=== PATIENT | male | born 1950 | race Caucasian/White ===

== ENCOUNTER 2020-10-03 09:03 | Emergency (ER) | payer OTHER ==
--- NOTE | 2020-10-03 09:08 | ERPHSYRPT ---
- History of Present Illness Time Seen by Provider: 10/03/20 09:08 Source: patient, family Physician History: This is a 70-year-old white male who has a history of hypertension on lisinopril and no new changes in his medication woke up this morning and had dizziness. He was still in the room was turning. Soon after the symptoms his gave him a Valium for some unknown reason. He denies chest pain and he denies shortness of breath. Denies abdominal pain. He did have a similar episode a few years back. Patient is new to this area and does not have a local primary care physician. He does not have a men's custom hair piece consultant. He is on low-dose carvedilol (beta-daljit). He states he is never been on any antidizzy medication in the past. Timing/Duration: today Severity: mild Character of Deficits: none Deficits: no difficulties Baseline/Normal Cognition: alert oriented x 3 Current Cognition: alert oriented x 3 Baseline Gait: walks w/o assistance Associated Symptoms: denies symptoms Allergies/Adverse Reactions: No Known Drug Allergies Allergy (Unverified 10/03/20 09:30) Home Medications: Carvedilol 3.125 mg [Coreg 3.125 MG] 3.125 mg PO DAILY 10/03/20 [History] Diclofenac Sodium 75 mg PO DAILY 10/03/20 [History] Doxazosin Mesylate 4 mg PO BID 10/03/20 [History] Levothyroxine Sodium [Euthyrox] 88 mcg PO DAILY 10/03/20 [History] Lisinopril 20 mg [Zestril 20 MG] 20 mg PO DAILY 10/03/20 [History] Ropinirole HCl 1 mg PO DAILY 10/03/20 [History] Travel Risk - International Travel Have you traveled outside of the country in past 3 weeks: No - Coronavirus Screening Are you exhibiting any of the following symptoms?: No Close contact with a COVID-19 positive Pt in past 14-21 Days: No - Review of Systems Constitutional: No Symptoms Eyes: No Symptoms Ears, Nose, & Throat: No Symptoms Respiratory: No Symptoms Cardiac: No Symptoms Abdominal/Gastrointestinal: No Symptoms Genitourinary Symptoms: No Symptoms Musculoskeletal: No Symptoms Skin: No Symptoms Neurological: Dizziness Psychological: No Symptoms Endocrine: No Symptoms Hematologic/Lymphatic: No Symptoms Immunological/Allergic: No Symptoms All Other Systems: Reviewed and Negative - Past Medical History Pertinent Past Medical History: Yes Cardiac History: Hypertension - Past Surgical History Past Surgical History: Yes - Nursing Vital Signs Nursing Vital Signs: Initial Vital Signs Temperature 96.5 F 10/03/20 09:08 Pulse Rate 59 L 10/03/20 09:08 Respiratory Rate 14 10/03/20 09:08 Blood Pressure 159/95 10/03/20 09:08 O2 Sat by Pulse Oximetry 98 10/03/20 09:08 Pain Scale Pain Intensity 0 - Jennifer Coma Scale Best Eye Response (Jennifer): (4) open spontaneously Best Verbal Response (Jennifer): (5) oriented Best Motor Response (Jennifer): (6) obeys commands Jennifer Total: 15 - Physical Exam General Appearance: no apparent distress, alert, anxiety Eye Exam: bilateral eye: normal inspection, PERRL, EOMI Ears, Nose, Throat Exam: normal ENT inspection, TMs normal, pharynx normal, moist mucous membranes Neck Exam: normal inspection, non-tender, supple, full range of motion Respiratory: normal breath sounds, lungs clear, airway intact, No chest tenderness, No respiratory distress Cardiovascular: regular rate/rhythm, normal heart sounds, normal peripheral pulses Gastrointestinal: soft, normal bowel sounds, No tenderness Rectal Exam: not done Back Exam: normal inspection, normal range of motion, No CVA tenderness Extremity Exam: normal inspection, normal range of motion, pelvis stable Mental Status: alert, oriented x 3, 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 No comparison EKG present or available) Ordered Tests: Active Orders 24 hr Category Date Time Status EKG-ER Only STAT Care 10/03/20 09:43 Active IV Insertion STAT Care 10/03/20 09:43 Active HEAD WITHOUT CONTRAST [CT] Stat Exams 10/03/20 10:44 Completed CBC W DIFF Stat Lab 10/03/20 09:55 Completed CMP Stat Lab 10/03/20 09:55 Completed MAGNESIUM Stat Lab 10/03/20 09:55 Completed T4 (Thyroxine) Stat Lab 10/03/20 09:55 Completed TROPONIN Q3H Lab 10/03/20 09:55 Completed TROPONIN Q3H Lab 10/03/20 12:45 Ordered TROPONIN Q3H Lab 10/03/20 15:45 Ordered TROPONIN Q3H Lab 10/03/20 18:45 Ordered TROPONIN Q3H Lab 10/03/20 21:45 Ordered TSH, 3RD Generation Stat Lab 10/03/20 09:55 Completed UA W/RFX UR CULTURE Stat Lab 10/03/20 11:12 Completed Lab/Rad Data: Laboratory Result Diagrams 10/03/20 09:55 10/03/20 09:55 Laboratory Results 10/03/20 10/03/20 10/03/20 Range/Units 11:12 09:55 09:55 WBC (4.0-10.5) K/mm3 RBC (4.1-5.6) M/mm3 Hgb (12.5-18.0) gm/dl Hct (42-50) % MCV (78-100) fl MCH (26-32) pg MCHC (32-36) g/dl RDW (11.5-14.0) % Plt Count (150-450) K/mm3 MPV (7.5-11.0) fl Gran % (36.0-66.0) % Eos # (Auto) (0-0.5) Absolute Lymphs (auto) (1.0-4.6) Absolute Monos (auto) (0.0-1.3) Lymphocytes % (24.0-44.0) % Monocytes % (0.0-12.0) % Eosinophils % (0.00-5.0) % Basophils % (0.0-0.4) % Absolute Granulocytes (1.4-6.9) Basophils # (0-0.4) Sodium (137-145) mmol/L Potassium (3.5-5.1) mmol/L Chloride (98-107) mmol/L Carbon Dioxide (22-30) mmol/L Anion Gap (5-15) MEQ/L BUN (9-20) mg/dL Creatinine (0.66-1.25) mg/dL Estimated GFR ML/MIN Glucose (74-106) mg/dL Calcium (8.4-10.2) mg/dL Magnesium (1.6-2.3) mg/dL Total Bilirubin (0.2-1.3) mg/dL AST (17-59) U/L ALT (0-50) U/L Alkaline Phosphatase (38-126) U/L Troponin I < 0.012 (0.000-0.034) ng/mL Serum Total Protein (6.3-8.2) g/dL Albumin (3.5-5.0) g/dL Thyroxine (T4) 8.43 (5.53-10.96) ug/dL TSH 3rd Generation 3.020 (0.47-4.68) mIU/L Urine Color YELLOW (YELLOW) Urine Appearance SLIGHTLY CLOUDY (CLEAR) Urine pH 7.0 (5-6) Ur Specific Louise 1.019 (1.005-1.025) Urine Protein NEGATIVE (Negative) Urine Ketones NEGATIVE (NEGATIVE) Urine Blood NEGATIVE (0-5) Ben/ul Urine Nitrite NEGATIVE (NEGATIVE) Urine Bilirubin NEGATIVE (NEGATIVE) Urine Urobilinogen NEGATIVE (0-1) mg/dL Ur Leukocyte Esterase NEGATIVE (NEGATIVE) Urine WBC (Auto) 6-10 (0-5) /HPF Urine RBC (Auto) NONE (0-2) /HPF U Epithel Cells (Auto) NONE (FEW) /HPF Urine Bacteria (Auto) NONE (NEGATIVE) /HPF Urine Mucus (Auto) SLIGHT (NEGATIVE) /HPF Urine Culture Reflexed NO (NO) Urine Glucose NEGATIVE (NEGATIVE) mg/dL 10/03/20 10/03/20 Range/Units 09:55 09:55 WBC 5.9 (4.0-10.5) K/mm3 RBC 4.87 (4.1-5.6) M/mm3 Hgb 15.0 (12.5-18.0) gm/dl Hct 45.4 (42-50) % MCV 93.2 (78-100) fl MCH 30.8 (26-32) pg MCHC 33.0 (32-36) g/dl RDW 13.5 (11.5-14.0) % Plt Count 151 (150-450) K/mm3 MPV 9.8 (7.5-11.0) fl Gran % 78.8 H (36.0-66.0) % Eos # (Auto) 0.06 (0-0.5) Absolute Lymphs (auto) 0.86 L (1.0-4.6) Absolute Monos (auto) 0.32 (0.0-1.3) Lymphocytes % 14.6 L (24.0-44.0) % Monocytes % 5.4 (0.0-12.0) % Eosinophils % 1.0 (0.00-5.0) % Basophils % 0.2 (0.0-0.4) % Absolute Granulocytes 4.64 (1.4-6.9) Basophils # 0.01 (0-0.4) Sodium 137 (137-145) mmol/L Potassium 4.3 (3.5-5.1) mmol/L Chloride 104 (98-107) mmol/L Carbon Dioxide 25 (22-30) mmol/L Anion Gap 11.6 (5-15) MEQ/L BUN 22 H (9-20) mg/dL Creatinine 0.96 (0.66-1.25) mg/dL Estimated GFR > 60.0 ML/MIN Glucose 107 H (74-106) mg/dL Calcium 8.9 (8.4-10.2) mg/dL Magnesium 2.3 (1.6-2.3) mg/dL Total Bilirubin 0.80 (0.2-1.3) mg/dL AST 34 (17-59) U/L ALT 43 (0-50) U/L Alkaline Phosphatase 79 (38-126) U/L Troponin I (0.000-0.034) ng/mL Serum Total Protein 6.9 (6.3-8.2) g/dL Albumin 4.2 (3.5-5.0) g/dL Thyroxine (T4) (5.53-10.96) ug/dL TSH 3rd Generation (0.47-4.68) mIU/L Urine Color (YELLOW) Urine Appearance (CLEAR) Urine pH (5-6) Ur Specific Louise (1.005-1.025) Urine Protein (Negative) Urine Ketones (NEGATIVE) Urine Blood (0-5) Ben/ul Urine Nitrite (NEGATIVE) Urine Bilirubin (NEGATIVE) Urine Urobilinogen (0-1) mg/dL Ur Leukocyte Esterase (NEGATIVE) Urine WBC (Auto) (0-5) /HPF Urine RBC (Auto) (0-2) /HPF U Epithel Cells (Auto) (FEW) /HPF Urine Bacteria (Auto) (NEGATIVE) /HPF Urine Mucus (Auto) (NEGATIVE) /HPF Urine Culture Reflexed (NO) Urine Glucose (NEGATIVE) mg/dL - Progress Progress: improved, re-examined Progress Note: 10/03/20 11:34 CAT scan of the head without contrast shows no intracranial abnormality. Medical decision making: This patient is had dizziness this morning. During his emergency department stay his heart rate dropped into the 40s often. He maintained his blood pressure well. This may be the source of his dizziness. We will provide him with a prescription for Antivert. In addition, we will place him on a Holter monitor and he will follow up with primary care physician locally. Counseled pt/family regarding: lab results, diagnosis, need for follow-up, rad results - Departure Departure Disposition: Home Clinical Impression: Dizziness, Bradycardia Condition: Stable Critical Care Time: No Additional Instructions: Stop your Coreg/carvedilol medication. Follow-up with the primary care physician for further management. Wear your Holter monitor and return back to the hospital as instructed. Use Antivert prescription as prescribed for dizziness symptoms. Prescriptions: Meclizine HCl 25 mg [Antivert 25 mg] 25 mg PO Q8H PRN #10 tablet PRN Reason: Dizziness
[2020-10-03 10:01] LABS: Absolute Neutrophil Ct (ANC) 4.64 (1.4-6.9); BASOPHIL % 0.2 % (0.0-0.4); Basophil (Absolute #) 0.01 (0-0.4); Eosinophil (Absolute #) 0.06 (0-0.5); Hematocrit 45.4 % (42-50); Lymphocyte (Absolute #) 0.86 (1.0-4.6); Lymphocytes % 14.6 % (24.0-44.0); Mean Cell Volume 93.2 fl (78-100); Mean Corpuscular Hemoglobin 30.8 pg (26-32); Mean Platelet Volume 9.8 fl (7.5-11.0); Monocyte (Absolute #) 0.32 (0.0-1.3); Monocytes % 5.4 % (0.0-12.0); Neutrophil % 78.8 % (36.0-66.0); Platelet Count 151 K/mm3 (150-450); Red Blood Count 4.87 M/mm3 (4.1-5.6); Red Cell Distribution Width 13.5 % (11.5-14.0); White Blood Count 5.9 K/mm3 (4.0-10.5)
[2020-10-03 10:30] LABS: ALBUMIN 4.2 g/dL (3.5-5.0); ALKALINE PHOSPHATASE 79 U/L (38-126); ANION GAP 11.6 MEQ/L (5-15); BLOOD UREA NITROGEN 22 mg/dL (9-20); CHLORIDE 104 mmol/L (98-107); Calcium 8.9 mg/dL (8.4-10.2); Carbon Dioxide 25 mmol/L (22-30); Creatinine 1 0.96 mg/dL (0.66-1.25); EST GLOMERULAR FILTRATION RATE > 60.0 ML/MIN; Glucose 107 mg/dL (74-106); MAGNESIUM 2.3 mg/dL (1.6-2.3); Potassium 4.3 mmol/L (3.5-5.1); SGOT/AST 34 U/L (17-59); SGPT/ALT 43 U/L (0-50); SODIUM 137 mmol/L (137-145); Total Protein 6.9 g/dL (6.3-8.2)
[2020-10-03 11:00] LABS: T4 (Thyroxine) 8.43 ug/dL (5.53-10.96); TSH, 3RD Generation 3.02 mIU/L (0.47-4.68)
--- NOTE | 2020-10-03 11:03 | XRAY ---
Indication: Severe dizziness. Low blood pressure. Multiple contiguous axial images obtained through the head without contrast. Compression: None Normal appearing brain parenchyma, ventricles, and bony calvarium for patient's age. Visualized paranasal sinuses and mastoid air cells are clear. Impression: Normal CT head without contrast exam.
[2020-10-03 11:12] VITALS: BP 148/91
[2020-10-03 11:30] LABS: Appearance SLIGHTLY CLOUDY (CLEAR); Bilirubin NEGATIVE (NEGATIVE); Blood NEGATIVE Ery/ul (0-5); Glucose NEGATIVE (NEGATIVE); Ketones NEGATIVE (NEGATIVE); Leukocyte Esterase NEGATIVE (NEGATIVE); Mucus SLIGHT /HPF (NEGATIVE); Nitrite NEGATIVE (NEGATIVE); Protein,Urine Dip NEGATIVE (Negative); Specific Gravity 1.019 (1.005-1.025); Urobilinogen NEGATIVE mg/dL (0-1)
[2020-10-03 12:02] VITALS: PULSE 67; O2SAT 96
== END 2020-10-03 12:05 | disposition home or self-care (01) ==
LOC: ED 09:03
DX: R42 Dizziness and giddiness (principal); R00.1 Bradycardia, unspecified
CPT/HCPCS: 36000; 36415; 70450; 80053; 81001; 83735; 84436; 84443; 84484; 85025; 93005; 93225; 99284

== ENCOUNTER 2021-01-11 07:57 | Emergency (ER) | payer MEDICARE ==
--- NOTE | 2021-01-11 08:32 | ERPHSYRPT ---
- History of Present Illness Time Seen by Provider: 01/11/21 08:20 Source: patient Exam Limitations: no limitations Patient Subjective Stated Complaint: pt here for left back and hip pain after lifting a shelf 2 days ago, Triage Nursing Assessment: pt alert, resp easy, skin w/d/p, no bruising or noted, helps to pull left leg over the other leg Physician History: This is a 70-year-old white male who has had chronic back problems including surgical "rods" placed in his back in the past and has a history of hypertension hypothyroidism. He is not on any medications for back pain. 2 days ago he was moving a shelf and the next day started having pain in his left lower back shooting posteriorly and caudally down his left buttock and hip. He did not fall or have traumatic injury to his back or hip. Dr. Jackman is his primary care physician. Patient has no known drug allergies. Timing/Duration: day(s) (2) Method of Injury: lifting, twisted, turning Quality: radiating, sharp, stabbing Back Pain Location: lumbar spine, paraspinous muscles Back Pain Radiation: buttocks, upper legs Severity of Pain-Max: moderate Severity of Pain-Current: moderate Modifying Factors: Improves With: movement (Hurts), rest (Helps) Associated Symptoms: No urinary incontinence, No loss of bowel control, No constipation, No numbness in legs/feet, No tingling in legs/feet Previous symptoms: same symptoms as today (But uncommon and rare in this patient) Allergies/Adverse Reactions: No Known Drug Allergies Allergy (Unverified 10/03/20 09:30) Home Medications: Carvedilol 3.125 mg [Coreg 3.125 MG] 3.125 mg PO DAILY 10/03/20 [History] Diclofenac Sodium 75 mg PO DAILY 10/03/20 [History] Doxazosin Mesylate 4 mg PO BID 10/03/20 [History] Levothyroxine Sodium [Euthyrox] 88 mcg PO DAILY 10/03/20 [History] Lisinopril 20 mg [Zestril 20 MG] 20 mg PO DAILY 10/03/20 [History] Ropinirole HCl 1 mg PO DAILY 10/03/20 [History] Hx Tetanus, Diphtheria Vaccination/Date Given: No (unknown) Hx Influenza Vaccination/Date Given: No Hx Pneumococcal Vaccination/Date Given: Yes Immunizations Up to Date: Yes Travel Risk - International Travel Have you traveled outside of the country in past 3 weeks: No - Coronavirus Screening Are you exhibiting any of the following symptoms?: No - Vaccine Status Have you recieved a Covid-19 vaccination: Yes Animal 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 - Review of Systems Constitutional: No Symptoms Eyes: No Symptoms Ears, Nose, & Throat: No Symptoms Respiratory: No Symptoms Cardiac: No Symptoms Abdominal/Gastrointestinal: No Symptoms Genitourinary Symptoms: No Symptoms, No Incontinence, No Flank Pain Musculoskeletal: Back Pain, No Fall Skin: No Symptoms Neurological: No Symptoms Psychological: No Symptoms Endocrine: No Symptoms Hematologic/Lymphatic: No Symptoms Immunological/Allergic: No Symptoms - Past Medical History Pertinent Past Medical History: Yes Cardiac History: Hypertension Other Medical History: vertigo - Past Surgical History Past Surgical History: Yes Other Surgical History: knee replacement, back surgery- kristan in back - Social History Smoking Status: Never smoker Exposure to second hand smoke: No Drug Use: none Patient Lives Alone: No - Nursing Vital Signs Nursing Vital Signs: Initial Vital Signs Temperature 97.0 F 01/11/21 08:17 Pulse Rate 73 01/11/21 08:17 Respiratory Rate 18 01/11/21 08:17 Blood Pressure 162/92 01/11/21 08:17 O2 Sat by Pulse Oximetry 99 01/11/21 08:17 Pain Scale Pain Intensity [Left Back] 0 Pain Intensity 9 - Physical Exam General Appearance: mild distress, alert, anxiety, obese Eye Exam: PERRL/EOMI, eyes nml inspection Ears, Nose, Throat Exam: normal ENT inspection, moist mucous membranes Neck Exam: normal inspection, non-tender, supple, full range of motion Respiratory Exam: airway intact, No chest tenderness, No respiratory distress Cardiovascular Exam: normal peripheral pulses (Bilateral lower extremities) Gastrointestinal Exam: No tenderness Rectal Exam: not done Back Exam: normal inspection, decreased range of motion (Secondary to pain), muscle spasm, No CVA tenderness, No vertebral tenderness Extremity Exam: normal inspection, normal range of motion, pelvis stable Neurologic Exam: alert, oriented x 3, cooperative, mailroom 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 II-XII nml as tested, normal mood/affect, nml cerebellar function, nml station & gait, sensation nml Skin Exam: normal color, warm, dry Lymphatic Exam: No adenopathy SpO2 Interpretation: normal SpO2: 99 O2 Delivery: Room Air - Course Nursing assessment & vital signs reviewed: Yes - Progress Progress: improved, pain not gone completely Counseled pt/family regarding: diagnosis, need for follow-up - Departure Departure Disposition: Home Clinical Impression: Acute exacerbation of chronic low back pain Condition: Stable Critical Care Time: No Referrals: MELODY JACKMAN MD [Primary Care Provider] - Additional Instructions: May perform back exercises to help improve your lower back pain. Take your medication as prescribed. Call your primary care physician today to make arrangements for follow-up appointment. Prescriptions: Hydrocodone/APAP 5/325 [[place] 5/325 mg] 1 each PO Q8H PRN PRN #8 tablet MDD 3 PRN Reason: Pain Cyclobenzaprine HCl 10 mg [Cyclobenzaprine 10 MG] 10 mg PO TID #10 tablet Prednisone 10 mg [Deltasone 10 mg] 10 mg PO TID #12 tablet
[2021-01-11] MEDS ORDERED: Hydromorphone 1 mg/ml Injection IM ONE (08:35)
[2021-01-11] MEDS ORDERED: Norflex 60 MG/2 ML IM ONE (08:36)
[2021-01-11] MEDS ORDERED: ZOFRAN ODT 4 MG PO ONE (08:36)
[2021-01-11] MEDS ORDERED: solu-MEDROL 125 MG, Sterile H2O 10 ml 2 ML IM ONE ×2 (08:36)
[2021-01-11] MEDS ORDERED: ZOFRAN ODT 4 MG ONE (08:41)
[2021-01-11] MEDS ORDERED: Hydromorphone 1 mg/ml Injection ONE (08:42)
[2021-01-11] MEDS ORDERED: solu-MEDROL ONE (08:42)
[2021-01-11] MEDS ORDERED: Norflex 60 MG/2 ML ONE (08:42)
[2021-01-11] MEDS ORDERED: Sterile H2O 10 ml IJ ONE (08:42)
[2021-01-11 09:26] VITALS: BP 153/84; PULSE 59; O2SAT 98
== END 2021-01-11 09:27 | disposition home or self-care (01) ==
LOC: ED 07:57
DX: M54.5 Low back pain (principal); M25.552 Pain in left hip; X50.9XXA Other and unspecified overexertion or strenuous movements or postures, initial encounter; Z79.899 Other long term (current) drug therapy
CPT/HCPCS: 96372; 99284; J1170; J2360; J2930; Q0162